=== PATIENT | female | born 1945 | race Two or more races ===

== ENCOUNTER → 2017-09-04 | Outpatient (CLI) | payer MEDICARE, OTHER ==
--- NOTE | 2017-09-04 16:17 | RADIOLOGY REPORT (SQ) ---
EXAM DESCRIPTION: FOOT LEFT COMPLETE COMPLETED DATE/TIME: 09/04/2017 4:07 pm REASON FOR STUDY: PAIN IN LEFT FOOT M79.672 PAIN IN LEFT FOOT COMPARISON: None. NUMBER OF VIEWS: Three views. TECHNIQUE: AP, lateral and oblique radiographic images acquired of the left foot. LIMITATIONS: None. FINDINGS: MINERALIZATION: Mild osteopenia BONES: No acute fracture or dislocation. No worrisome bone lesions. JOINTS: Mild to moderate degenerative change interphalangeal joints. No erosive changes. SOFT TISSUES: No soft tissue swelling. No foreign body. OTHER: Small heel spur. IMPRESSION: No acute findings. Degenerative changes. No significant bony abnormality to explain th e history. TECHNICAL DOCUMENTATION: JOB ID: [id number] [employer]- All Rights Reserved
== END ==
LOC: OD 15:54
PROVIDERS: ATTEND Internal Medicine
DX: M79.672 Pain in left foot (principal)